=== PATIENT | female | born 1985 | race Two or more races ===

== ENCOUNTER 2020-11-26 05:39 | Emergency (ER) | payer OTHER ==
[2020-11-26 06:14] VITALS: BP 112/74; PULSE 77; TEMP 98.4; BMI 31.3
[2020-11-26] MEDS ORDERED: ACETAMINOPHEN 325 MG TABLET (FP) PO ONE (06:39)
[2020-11-26] MEDS ORDERED: ACETAMINOPHEN 325 MG TABLET (FP) ONE (06:40)
[2020-11-26] MEDS ORDERED: LIDOCAINE 5% TOPICAL PATCH TP ONE (07:15)
[2020-11-26] MEDS ORDERED: LIDOCAINE 5% TOPICAL PATCH ONE (07:27)
[2020-11-26] MEDS ORDERED: LIDOCAINE PATCH REMOVAL MC ONE (22:00)
== END 2020-11-26 07:48 | disposition home or self-care (01) ==
LOC: JER 05:39
DX: M54.5 Low back pain (principal)
CPT/HCPCS: 99283-25